=== PATIENT | male | born 1965 | race Caucasian/White ===

== ENCOUNTER 2017-03-08 05:21 | Emergency (ER) | payer MEDICAID, OTHER ==
[2017-03-08] MEDS ORDERED: Morphine 2 MG/ML SYRINGE ONE (06:09)
[2017-03-08] MEDS ORDERED: Acetaminophen 500 MG TAB ONE (06:09)
[2017-03-08 06:25] LABS: #Lymphocytes 0.6 thou/uL (1.20-3.40); #Monocytes 0.6 thou/uL (0.11-0.59); #Neutrophils 5.6 thou/uL (1.40-6.50); %Eosinophils 0.7 % (0.0-10.0); %Lymphocytes 9.3 % (21.0-51.0); %Monocytes 8.3 % (0.0-10.0); Hematocrit 40.3 % (42.0-52.0); Mean Platelet Volume 7.7 fL (7.4-10.4); Red Blood Cell (RBC) Count 4.07 mill/uL (4.70-6.10); White Blood Cell (WBC) Count 6.9 thou/uL (4.8-10.8)
[2017-03-08 06:41] LABS: Lactic Acid - Sepsis 1.6 mmol/L (0.5-2.2)
[2017-03-08 06:43] LABS: Bilirubin Small (Negative); Blood, Urine Negative (Negative); Glucose, Urine (Dipstick) >=1000 mg/dL (Negative); Ketone, Urine Negative (Negative); Nitrite Negative (Negative); Protein, Urine (Dipstick) Trace mg/dL (Neg-Trace)
[2017-03-08 06:46] LABS: ALT (SGPT) 52 U/L (8-55); AST (SGOT) 41 U/L (5-34); Alkaline Phosphatase 130 U/L (40-150); Anion Gap 7 mmol/L (10-20); BUN (Urea Nitrogen) 6 mg/dL (8.9-20.6); Bilirubin, Total 1.7 mg/dL (0.2-1.2); Calc. Creatinine Clearance 0 mL/min (70-130); Calcium 7.8 mg/dL (7.8-10.44); Carbon Dioxide 25 mmol/L (22-29); Chloride 102 mmol/L (98-107); Estimated GFR-MDRD Greater than 90; Protein, Total 6.6 g/dL (6.0-8.3)
--- NOTE | 2017-03-08 08:17 | ULT ---
ULTRASOUND VENOUS DOPPLER LEFT LOWER EXTREMITY: HISTORY: Calf tenderness, redness, swelling, pain. COMPARISON: None. TECHNIQUE: Rela-time, rodriguez scale, color Doppler, and spectral analysis of the left lower extremity system was p erformed with a linear ray transducer. FINDINGS: The common femoral, femoral, and proximal portions of the grater saphenous and deep veins as well as the popliteal and posterior tibial vein are interrogated. Normal flow, augmentation, and compressi on. IMPRESSION: No deep venous thrombosis. POS: [facility]
[2017-03-08] MEDS ORDERED: Potassium Chloride 20 MEQ TAB ONE (08:18)
== END 2017-03-08 08:26 | disposition short-term general hospital (02) ==
LOC: ERS 05:21
DX: A41.9 Sepsis, unspecified organism (principal); L03.032 Cellulitis of left toe; I10 Essential (primary) hypertension; K21.9 Gastro-esophageal reflux disease without esophagitis; F32.9 Major depressive disorder, single episode, unspecified; F17.210 Nicotine dependence, cigarettes, uncomplicated
CPT/HCPCS: 36415; 80053; 81003; 83605; 85652; 86140; 93005; 96361; 96374; J2270

== ENCOUNTER 2017-07-11 23:06 | Emergency (ER) | payer OTHER ==
[2017-07-12 00:04] LABS: CKMB 2.2 ng/mL (0-6.6); Troponin I Less than 0.010 ng/mL (< 0.028)
[2017-07-12 00:12] LABS: ALT (SGPT) 78 U/L (8-55); AST (SGOT) 111 U/L (5-34); Albumin 2.6 g/dL (3.5-5.0); Alkaline Phosphatase 190 U/L (40-150); Anion Gap 8 mmol/L (10-20); BUN (Urea Nitrogen) 10 mg/dL (8.9-20.6); Bilirubin, Total 1.3 mg/dL (0.2-1.2); Calc. Creatinine Clearance 0 mL/min (70-130); Calcium 8.2 mg/dL (7.8-10.44); Carbon Dioxide 24 mmol/L (22-29); Chloride 108 mmol/L (98-107); Estimated GFR-MDRD Greater than 90; Glucose 185 mg/dL (70-105); Lipase 20 U/L (8-78); Magnesium 1.6 mg/dL (1.6-2.6); Potassium 3.5 mmol/L (3.5-5.1); Protein, Total 6.6 g/dL (6.0-8.3); Sodium 136 mmol/L (136-145)
[2017-07-12 00:14] LABS: HBCM Index 0.11 S/CO (0-0.79); Hep A IgM AB Non-Reactive (NonReactive); Hep A IgM S/CO 0.11 S/CO (0-0.79); Hep B Surf Ag Non-Reactive S/CO (NonReactive); Hepatitis B Core IGM Abs Non-Reactive (NonReactive)
[2017-07-12 00:18] LABS: #Eosinphils 0.2 thou/uL (0.0-0.7); #Lymphocytes 0.8 thou/uL (1.20-3.40); #Monocytes 0.2 thou/uL (0.11-0.59); #Neutrophils 1.5 thou/uL (1.40-6.50); %Eosinophils 6.3 % (0.0-10.0); %Lymphocytes 27.9 % (21.0-51.0); %Monocytes 8.1 % (0.0-10.0); %Neutrophils 56.8 % (42.0-75.0); Hemoglobin 12.3 g/dL (14.0-18.0); Mean Corpuscular HGB CONC 33.6 g/dL (32.0-36.0); Mean Corpuscular Hemoglobin 32.1 pg (27.0-31.0); Mean Corpuscular Volume 95.6 fl (80.0-94.0); Mean Platelet Volume 8.6 fL (7.4-10.4); Platelet Count 65 thou/uL (130-400); RBC Distribution Width 16.6 % (11.5-14.5); Red Blood Cell (RBC) Count 3.82 mill/uL (4.70-6.10); White Blood Cell (WBC) Count 2.7 thou/uL (4.8-10.8)
[2017-07-12 00:21] LABS: INR-International Normal Ratio 1.3; Prothrombin Time 16.8 SEC (12.0-14.7)
[2017-07-12 00:22] LABS: PTT 32.9 SEC (22.9-36.1)
[2017-07-12 01:12] LABS: Hep C IgG Ab Reflex HepC Qnt (NonReactive); Hep C Index 8.78 S/CO (0-0.79)
--- NOTE | 2017-07-12 02:44 | PDOC.FPRHP ---
- History of Present Illness Chief Complaint: Abdominal pain History of Present Illness: 51 year old male with history of chronic hepatitis C, HTN, and GERD presents with a 4 month history of increasing abdominal girth and abdominal pain. The pain was a "pressure-like" pain that was initially intermittent, but has become persistent over the last few days. Patient has attempted to take tylenol and ibuprofen for pain, but has not had any relief in symptoms. He currently is homeless and jumps from penitentiary to penitentiary. His mother does live in town, so he has been staying with her over the past few days, and she was the one that called EMS at his request. Associated symptoms included shortness of breath and chest pain. A paracentesis was performed down in the ED, and 5 liters of ascitic fluid was removed. Patient states that his abdominal pain, shortness of breath, and chest pain all resolved after the procedure. Over the past few months, patient has been urinating less frequently. He denies any recent fevers , chills, dysuria, cough, congestion, sore throat, or headaches. He has chronic lower extremity swelling that is at baseline. ED Course: Patient was given morphine 6 mg in the ED. Additionally, a paracentesis was performed, and 5L of ascitic fluid was removed. An order was placed for 50 g of albumin to be given. - Allergies/Adverse Reactions Allergies Allergy/AdvReac Type Severity Reaction Status Date / Time No Known Drug Allergies Allergy Verified 04/05/16 00:02 - Home Medications Medication Instructions Recorded Confirmed Type Amitriptyline HCl [Elavil] 150 mg PO HS 04/05/16 04/05/16 History Citalopram [CeleXA] 10 mg PO DAILY 04/05/16 04/05/16 History Linezolid [Zyvox] 600 mg PO BID #20 tab 04/10/16 Rx Lisinopril 5 mg PO DAILY 04/14/16 04/14/16 History Comments: Patient has not taken medications consistently in several years. He takes "left over amitryptiline" from his mom. Otherwise, he takes over the counter antacids , ibuprofen, and tylenol. - History PMHx: Chronic Hepatitis C, HTN, GERD, Pancytopenia, Hypoalbuminemia, Schizoaffective disorder PSHx: Left 1st toe surgery (unspecified) FHx: Noncontributory Social: Patient is currently homeless and jumping from penitentiary to penitentiary. He states that he has a home address in [place] where he shares a trailor with several individuals. He claims that he often needs to get away from them, so he opts to live on the streets. His mother does live here and town, and he has been staying with her for the past few days. Patient endorses a 1 PPD tobacco use history since 2006. He denies drug or alcohol use. - Review of Systems General: reports: weight/appetite/sleep changes (Increased weight). denies: fever/chills, night sweats ENT: denies: nasal congestion, rhinorrhea Respiratory: reports: shortness of breath. denies: cough, congestion Cardiovascular: reports: chest pain. denies: palpitation, edema, paroxysmal nocturnal dyspnea Gastrointestinal: reports: abdominal pain. denies: nausea, vomiting, diarrhea, constipation Genitourinary: reports: other (Decreased urination). denies: polyuria Skin: denies: rashes, lesions, itching Musculoskeletal: reports: pain (neck pain) Neurological: denies: syncope, seizure, weakness Psychological: reports: other (Schizoaffective disorder). denies: depression - Vital signs BP: [] HR: [] RR: [] Tmax: [] Pox: []% on [] Wt: [] - Physical Exam Constitutional: NAD, awake, alert and oriented, well developed HEENT: normocephalic and atraumatic, PERRLA, EOMI Neck: supple Heart: RRR -Heart: systolic murmur 2/6 Lungs: CTAB, no respiratory distress, no wheezing Abdomen: soft, non-tender, bowel sounds present, other (umbilical hernia, reducible) -Abdomen: mildly distended Musculoskeletal: normal structure, normal tone Neurological: no focal deficit Skin: capillary refill <2 seconds -Skin: Multiple nailbeds with hematomas. Multiple tattoos Heme/Lymphatic: no purpura, no petechia Psychiatric: other (Paranoid) FMR H&P: Results - Labs Result Diagrams: 07/11/17 23:25 07/11/17 23:25 Lab results: WBC 2.7 thou/uL (4.8-10.8) L 07/11/17 23:25 Hgb 12.3 g/dL (14.0-18.0) L 07/11/17 23:25 Hct 36.5 % (42.0-52.0) L 07/11/17 23:25 MCV 95.6 fl (80.0-94.0) H 07/11/17 23:25 Plt Count 65 thou/uL (130-400) L 07/11/17 23:25 Neutrophils % 56.8 % (42.0-75.0) 07/11/17 23:25 Sodium 136 mmol/L (136-145) 07/11/17 23:25 Potassium 3.5 mmol/L (3.5-5.1) 07/11/17 23:25 Chloride 108 mmol/L (98-107) H 07/11/17 23:25 Carbon Dioxide 24 mmol/L (22-29) 07/11/17 23:25 BUN 10 mg/dL (8.9-20.6) 07/11/17 23:25 Creatinine 0.83 mg/dL (0.6-1.3) 07/11/17 23:25 Glucose 185 mg/dL (70-105) H 07/11/17 23:25 Calcium 8.2 mg/dL (7.8-10.44) 07/11/17 23:25 Total Bilirubin 1.3 mg/dL (0.2-1.2) H 07/11/17 23:25 AST 111 U/L (5-34) H 07/11/17 23:25 ALT 78 U/L (8-55) H 07/11/17 23:25 Alkaline Phosphatase 190 U/L (40-150) H 07/11/17 23:25 CK-MB (CK-2) 2.2 ng/mL (0-6.6) 07/11/17 23:25 B-Natriuretic Peptide 51.9 pg/mL (0-100) 07/11/17 23:25 Serum Total Protein 6.6 g/dL (6.0-8.3) 07/11/17 23:25 Albumin 2.6 g/dL (3.5-5.0) L 07/11/17 23:25 Lipase 20 U/L (8-78) 07/11/17 23:25 - Radiology Interpretation CT scan - chest Status: pending CT scan - abdomen Status: pending Other Status: pending Additional comment: RUQ FMR H&P: A/P - Problem List (1) Ascites Status: Acute Code(s): R18.8 - OTHER ASCITES (2) Chronic hepatitis C with cirrhosis Status: Chronic Code(s): B18.2 - CHRONIC VIRAL HEPATITIS C; K74.60 - UNSPECIFIED CIRRHOSIS OF LIVER (3) Schizoaffective disorder Status: Chronic Code(s): F25.9 - SCHIZOAFFECTIVE DISORDER, UNSPECIFIED (4) GERD (gastroesophageal reflux disease) Status: Chronic Code(s): K21.9 - GASTRO-ESOPHAGEAL REFLUX DISEASE WITHOUT ESOPHAGITIS (5) HTN (hypertension) Status: Chronic Code(s): I10 - ESSENTIAL (PRIMARY) HYPERTENSION (6) Hyperglycemia Status: Chronic Code(s): R73.9 - HYPERGLYCEMIA, UNSPECIFIED (7) Pancytopenia Status: Chronic Code(s): D61.818 - OTHER PANCYTOPENIA - Plan Disposition/LOS: Admit to telemetry for observation. Anticipate 1-2 day hospitalization. FMR H&P: Upper Level - Pertinent history After admission, pt was transferred to the [facility] for insurance reasons - Plan Date/Time: 07/12/17 0242 IGiovanna, have evaluated this patient and agree with findings/plan as outlined by general internal medicine physician resident. Pertinent changes/additions are listed here. Attending Addendum - Attending Addendum Date/Time: 07/12/17 1014 This patient was transferred to the [facility] before being admitted.
[2017-07-12 02:59] LABS: Fluid, Glucose 171 mg/dL (Not Available); Fluid, Protein Less than 1.0 g/dL (Not Available)
[2017-07-12] MEDS ORDERED: Albumin 25% 25 GM/100 ML BOT IVPB SCH (03:00)
[2017-07-12 03:20] LABS: BF Color Yellow; Body Fluid Source PERITONEAL FLUID; Clarity Clear (Clear); Tube # EDTA
[2017-07-12 03:21] LABS: BF RBC Count - Manual 674 /cumm; BF WBC/Nonhematics Ct. - Manua 74 /cumm
[2017-07-12 03:30] LABS: BF Segmented Neutrophils 9 %; Cell Count Non Hematic 77 %; Eosinophils 1 %; Lymphocytes 13 %
[2017-07-12 03:45] LABS: Troponin I Less than 0.010 ng/mL (< 0.028)
[2017-07-12 05:01] LABS: Bilirubin Negative (Negative); Blood, Urine Negative (Negative); Clarity CLEAR (Clear); Glucose, Urine (Dipstick) Negative (Negative); Leukocyte Negative (Negative); Nitrite Negative (Negative); Protein, Urine (Dipstick) Negative (Neg-Trace); Specific Gravity, Urine 1.028 (1.002-1.036); Urobilinogen 0.2 mg/dL (0.2-1.0)
[2017-07-12] MEDS ORDERED: ISOVUE-370 76%-LOCM 1 ML ONE (07:12)
--- NOTE | 2017-07-12 08:07 | CT ---
PRELIMINARY REPORT/[facility]/EMERGENCY AFTER HOURS PROCEDURE: EXAM: CT Angiography Chest With Intravenous Contrast CLINICAL HISTORY: 51 years old, male; Pain; Abdominal pain; Chest pain; Patient HX: Er 20; Chest pain; M51 presents w/ abd pain and distention since 07/07. Pt denies any n/v/d, bowel changes, urinary changes. Pt reports h is abd started swelling before the abd pain started. Pt reports HX of hep c. Pt denies fever or chill s. TECHNIQUE: Axial computed tomographic angiography images of the chest with intravenous contrast using pulmonary embolism protocol. MIP reconstructed images were created and reviewed. Coronal reformatted images were created and reviewed. COMPARISON: No relevant prior studies available. FINDINGS: Pulmonary arteries: Unremarkable. No pulmonary embolism. Aorta: No acute findings. No thoracic aortic aneurysm. Lungs: Lungs are clear allowing for expiratory phase imaging with multifocal subsegmental atelectasis . No mass. Pleural space: Unremarkable. No significant effusion. No pneumothorax. Heart: Cardiomegaly. No significant pericardial effusion. No evidence of RV dysfunction. Mediastinum: The esophagus is unremarkable. Bones/joints: No acute fracture. No dislocation. Soft tissues: Unremarkable. Lymph nodes: Unremarkable. No enlarged lymph nodes. IMPRESSION: No acute findings. Thank you for allowing us to participate in the care of your patient. Dictated and Authenticated by: David Hess MD 07/12/2017 1:59 AM Central Time ([place] & [place]) FINAL REPORT CT PULMONARY ANGIOGRAM WITH IV CONTRAST AND 3D POSTPROCESSING: Date: 07/12/17 FINDINGS/IMPRESSION: I agree with the preliminary report given by Dr. David Hess of [facility]. POS: [facility]
--- NOTE | 2017-07-12 08:09 | CT ---
PRELIMINARY REPORT/[facility]/EMERGENCY AFTER HOURS PROCEDURE: EXAM: CT Abdomen and Pelvis With Intravenous Contrast EXAM DATE/TIME: Exam ordered 07/12/2017 1:13 AM CLINICAL HISTORY: 51 years old, male; Pain; Abdominal pain; Chest pain; Patient HX: Er 20; Chest pain; M51 presents w/ abd pain and distention since 07/07. Pt denies any n/v/d, bowel changes, urinary changes. Pt reports h is abd started swelling before the abd pain started. Pt reports HX of hep c. Pt denies fever or chill s. TECHNIQUE: Axial computed tomography images of the abdomen and pelvis with intravenous contrast. MIP reconstructed images were created and reviewed. Coronal reformatted images were created and reviewed. COMPARISON: No relevant prior studies available. FINDINGS: Lower thorax: No acute findings. ABDOMEN: Liver: Hepatic cirrhosis. Gallbladder and bile ducts: Cholelithiasis. No cholecystitis or biliary ductal dilatation. Pancreas: Unremarkable. No mass. No ductal dilation. Spleen: Splenomegaly. Adrenals: Unremarkable. No mass. Kidneys and ureters: Unremarkable. No solid mass. No hydronephrosis. Stomach and bowel: No bowel wall thickening or intestinal obstruction. Appendix: Appendix not visualized. No evidence of appendicitis. PELVIS: Bladder: Unremarkable. No mass. Reproductive: Unremarkable as visualized. ABDOMEN and PELVIS: Intraperitoneal space: Large volume ascites. No free air. Bones/joints: No acute fracture. No dislocation. Soft tissues: Umbilical hernia containing ascites fluid. Vasculature: Unremarkable. No abdominal aortic aneurysm. Lymph nodes: Unremarkable. No enlarged lymph nodes. IMPRESSION: 1. Hepatic cirrhosis with splenomegaly. 2. Large volume ascites. Thank you for allowing us to participate in the care of your patient. Dictated and Authenticated by: David Hess MD 07/12/2017 1:59 AM Central Time ([place] & Vin) FINAL REPORT CT ABDOMEN AND PELVIS WITH IV CONTRAST: Date: 07/12/17 FINDINGS/IMPRESSION: I agree with the preliminary report given by Dr. David Hess of [facility]. POS: [facility]
[2017-07-15 11:21] LABS: HCV log10 6.489 (.); Hep C PCR-Quant 3080000 IU/mL (.)
== END 2017-07-12 05:58 | disposition short-term general hospital (02) ==
LOC: ERS 23:06
DX: R18.8 Other ascites (principal); K72.90 Hepatic failure, unspecified without coma; F32.9 Major depressive disorder, single episode, unspecified; F39 Unspecified mood [affective] disorder; F17.210 Nicotine dependence, cigarettes, uncomplicated; K21.9 Gastro-esophageal reflux disease without esophagitis; I10 Essential (primary) hypertension; Z79.899 Other long term (current) drug therapy
CPT/HCPCS: 36415; 71275; 74177; 80053; 80074; 81003; 82105; 82140; 82248; 82378; 82553; 82945; 83690; 83735; 83880; 84157; 84484; 85025; 85060; 85379; 85610; 85730; 87070; 87205; 87522; 89051; 93005; 96365; 96366; 96375; 96376; J2270; P9047

== ENCOUNTER 2018-03-24 21:49 | Inpatient (IN) | payer SELFPAY ==
[2018-03-24 22:46] LABS: Anion Gap 13 mmol/L (10-20); BUN (Urea Nitrogen) 18 mg/dL (8.9-20.6); Calc. Creatinine Clearance 0 mL/min (70-130); Calcium 8.6 mg/dL (7.8-10.44); Carbon Dioxide 19 mmol/L (22-29); Chloride 107 mmol/L (98-107); Estimated GFR-MDRD 88; Glucose 253 mg/dL (70-105); Potassium 3.8 mmol/L (3.5-5.1); Sodium 135 mmol/L (136-145)
[2018-03-24 22:54] LABS: Actual Bicarbonate (HCO3a) 20.1 mEq/L (22-28); Analyzer IN Cardio ER; Base Excess (BEa) -3.2 mEq/L (-2.0 to +3.0); CO2 Tension 31.7 mmHg (35.0-45.0); Calcium, Ionized 1.14 mmol/L (1.12-1.30); Carboxyhemoglobin (COHb) 1.4 gm% (0.0-3.0); Hemoglobin (Hb) 14.8 g/dL (14.0-18.0); O2 Tension (PaO2) 81.8 mmHg (80.0-100.0); Potassium - ABG Lab 3.78 mmol/L (3.70-5.30); pH, Arterial 7.42 (7.35-7.45)
[2018-03-24 22:57] LABS: ALV-art Gradient 28.305 (0-20); Puncture Site RRA
[2018-03-24 23:12] LABS: Lactic Acid 1.9 mmol/L (0.5-2.2)
[2018-03-24] MEDS ORDERED: Insulin Glargine 10 UNITS in Pre-Filled Syringe 1 EACH SC SCH (23:45)
[2018-03-25] MEDS ORDERED: Acetaminophen 325 MG TAB PO PRN (00:10)
[2018-03-25] MEDS ORDERED: Dextrose 50% Abboject 50 ML SYRINGE SLOW IVP PRN (00:10)
[2018-03-25] MEDS ORDERED: Ondansetron ODT 4 MG TAB PO PRN (00:10)
[2018-03-25] MEDS ORDERED: Dextrose 5% in Water 1,000 ML IV PRN (00:10)
[2018-03-25] MEDS ORDERED: Ondansetron PF 4 MG/2 ML Vial IVP PRN (00:10)
[2018-03-25] MEDS ORDERED: HumaLOG 300 UNITS/3 ML VIAL SC PRN (00:10)
[2018-03-25] MEDS: Sodium Chloride 0.9% 1,000 ML IV SCH ×2 (01:47→14:00)
[2018-03-25 02:04] VITALS: BMI 34.4
[2018-03-25 05:56] LABS: #Eosinphils 0.1 thou/uL (0.0-0.7); #Lymphocytes 1.5 thou/uL (1.20-3.40); #Monocytes 0.6 thou/uL (0.11-0.59); %Basophils 0.7 % (0.0-1.0); %Eosinophils 2.1 % (0.0-10.0); %Lymphocytes 36.1 % (21.0-51.0); %Monocytes 14.8 % (0.0-10.0); %Neutrophils 46.3 % (42.0-75.0); Hemoglobin 14.4 g/dL (14.0-18.0); Mean Corpuscular HGB CONC 32.7 g/dL (32.0-36.0); Mean Corpuscular Hemoglobin 31.3 pg (27.0-31.0); Mean Corpuscular Volume 95.6 fL (78.0-98.0); Mean Platelet Volume 7.6 fL (7.4-10.4); Platelet Count 80 thou/uL (130-400); Red Blood Cell (RBC) Count 4.61 mill/uL (4.70-6.10); White Blood Cell (WBC) Count 4.2 thou/uL (4.8-10.8)
[2018-03-25 06:12] LABS: Anion Gap 14 mmol/L (10-20); BUN (Urea Nitrogen) 18 mg/dL (8.9-20.6); Calc. Creatinine Clearance 121 mL/min (70-130); Calcium 8.7 mg/dL (7.8-10.44); Carbon Dioxide 18 mmol/L (22-29); Chloride 106 mmol/L (98-107); Estimated GFR-MDRD 72; Glucose 348 mg/dL (70-105); Potassium 3.9 mmol/L (3.5-5.1); Sodium 134 mmol/L (136-145)
[2018-03-25] MEDS: HumaLOG 300 UNITS/3 ML VIAL SC PRN ×3 (06:34→17:42)
--- NOTE | 2018-03-25 08:21 | HP ---
CHIEF COMPLAINT: High blood sugar. HISTORY OF PRESENT ILLNESS: This is a 52-year-old male with past medical history significant for hep atitis C, hypertension, GERD, diabetes mellitus type 2, presenting with elevated blood sugars. The p reinier states that he was not feeling well and that he was feeling a little fuzzy and shaky, so he we nt to the Urgent [facility] and the patient was transferred from [facility] to our ED because the patient's blood sugars were elevated, so they wanted the patient be evaluated for diabetic ketoacidosis. At this time, patient is lying in bed, does not appear to be in any acute dis tress and the patient states that he also went to [facility] for his psych scripts and per the patient, he states that he is very compliant with his medications, he said that when he came out of sn[facility] he did n ot get any medications from [facility], therefore, the patient did not have any medications filled, so the patient states that he had to go to "some lady" to get her medications filled. At this time, the pat dolores states that he is trying his best to stay out of trouble and that he is trying to take good care of himself as much as possible. The patient denies any fever, nausea, vomiting, chest pain, palpita tions, shortness of breath at this time. Of note, the patient was seen on 06/2017 for ascites in our hospital and the patient had paracentesis during the visit. REVIEW OF SYSTEMS: All other systems were reviewed and are negative. PAST MEDICAL HISTORY: Significant for GERD, hepatitis C, hypertension, diabetes mellitus type 2. PAST SURGICAL HISTORY: Tonsillectomy, adenoidectomy, left great toe surgery. PSYCHIATRIC HISTORY: The patient has depression, schizoaffective disorder. SOCIAL HISTORY: The patient smokes cigarettes. Per patient, he does not smoke a lot of cigarette, b ut states that every now and then he craves for cigarette since he used to smoke cigarettes in the [place]. The patient also is a former methamphetamine abuser. Per records, the patient actually smokes 1 pack per day. The patient just came out of [facility] and the patient is homeless. FAMILY HISTORY: Reviewed and is noncontributory to this visit. ALLERGIES: No known drug allergies. CURRENT MEDICATIONS: Olanzapine 15 mg, amitriptyline 75 mg, Zantac. PHYSICAL EXAMINATION: VITAL SIGNS: Blood pressure is 166/104, pulse of 108, respiratory rate of 18, temperature of 98.1, O 2 saturation of 97. GENERAL APPEARANCE: The patient is lying in bed. The patient is very talkative, appeared to be aler t and oriented x3, does not appear to be in any distress. HEENT: Normocephalic, atraumatic. Pupils are equally round and reactive to light. Extraocular move ments are intact. No scleral icterus. No conjunctival pallor. Mucous membranes are moist. The pat ient had dental caries and patient has some loose teeth. NECK: Supple, nontender. Trachea is midline. Full range of motion. LUNGS: Clear to auscultation bilaterally. No wheezing, no rales, no rhonchi is appreciated. CARDIOVASCULAR: Positive S1, S2, regular rate and rhythm. No murmurs, no gallops or rubs appreciate d. ABDOMEN: Soft, nontender, nondistended. Positive bowel sounds in all quadrants. No masses, no blossom toneal signs. EXTREMITIES: The patient has 5/5 upper extremity strength, 5/5 lower extremity strength. Good pulse s at the upper and lower extremities. No edema. NEUROLOGIC: Cranial nerves II-XII grossly intact. No neurologic deficit noted. SKIN: The patient does have tattoos all over his body. Patient has tattoos around his abdomen, his upper extremities. Per patient, he actually got hepatitis C from using tattoo needles. PSYCHIATRIC: The patient has good affect; however, has that organization and his concentration is ve ry poor. The patient is alert, oriented x3. EMERGENCY DEPARTMENT COURSE: The patient received Lantus 10 units and lactulose 40. LABORATORY: WBC 4.2, hemoglobin 14.4, hematocrit 44.1, RDW 13, platelet count is 880. ABGs; pH 7.4, pCO2 is 31.7, pO2 is 81.8. Electrolytes: Sodium is 135, potassium is 3.8, chloride is 107, carbon dioxide of 19, anion gap of 13, BUN is 18, creatinine 0.91, GFR of 88. Glucose is 253. Lactic acid is 1.9. Ammonia level is 100. ASSESSMENT AND PLAN: 1. This is a 52-year-old male being admitted for hyperglycemia. At this point, the patient has been started on insulin sliding scale aggressively and we are going to continue patient on insulin. The patient will benefit from case management help as patient does not have a place to live. The patient does not have insurance to fill his medications. We will continue to monitor the patient closely. We will follow up on morning labs. We will replete electrolytes. 2. Hepatic encephalopathy, most likely due to metabolic derangements. The patient's ammonia level i s currently elevated at 100. We will start the patient on lactulose. We will follow up on patient's mental status. At this point, the patient is starting to become alert and oriented x3. 3. Hepatic cirrhosis. The patient has a history of hepatitis C and the patient has cirrhosis. At t his point, we will continue current management. 4. 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 We will monitor the patient's platelets and we will mon itor the patient closely. 5. Hyperammonemia. We have given the patient lactulose. We will continue to monitor the patient. 6. Schizoaffective disorder. We will continue the patient on his psych medications. 7. Deep venous thrombosis and gastrointestinal prophylaxis.
[2018-03-25] MEDS ORDERED: Citalopram 10 MG TAB PO SCH (09:00)
[2018-03-25] MEDS ORDERED: Lisinopril 5 MG TAB PO SCH (09:00)
[2018-03-25] MEDS ORDERED: Enoxaparin Sodium 40 MG/0.4 ML SYRINGE SC SCH (09:00)
[2018-03-25] MEDS: Famotidine/PF 20 mg/2ml Vial SLOW IVP SCH ×2 (09:12→20:06)
[2018-03-25] MEDS ORDERED: metFORMIN 500 MG TAB PO SCH (17:00)
[2018-03-25] MEDS ORDERED: Amitriptyline HCl 100 MG TAB PO SCH (21:00)
[2018-03-25 21:08] VITALS: BP 130/64; TEMP 98.4
[2018-03-26] MEDS ORDERED: Famotidine 20 MG TAB PO SCH (09:00)
--- NOTE | 2018-03-26 10:28 | DIS ---
DATE OF ADMISSION: 03/25/2018 DATE OF DISCHARGE: 03/26/2018 FINAL DIAGNOSES: 1. Uncontrolled hyperglycemia. 2. Hepatic encephalopathy, most likely due to metabolic derangements. 3. Hepatic cirrhosis. 4. 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 5. Hyperammonemia. 6. Schizoaffective disorder. HOSPITAL COURSE: The patient was a 52-year-old male with past medical history positive for hepatitis C, hypertension, GERD, diabetes mellitus type 2, who presented with elevated blood sugars. He felt a little fuzzy and shaky, so he went to the Urgent Care and then he was transferred from [facility] urgent care to emergency department at [facility]. He was evaluated for diabetic ketoacidosis. He got evaluated in the emergency room. At this time, his white count was 4.2, hemog lobin 14.4, hematocrit 44.1, platelet count was 880,000. ABGs showed pH of 7.4, pCO2 31.7, pO2 81.8, sodium 135, potassium 3.8, chloride 107, CO2 19, anion gap was 13, BUN 18, creatinine 0.91, glucose was 253. Lactic acid 1.9 and ammonia level was 100. The patient was continued on insulin. He was s tarted on lactulose. His mentation was significantly improved at the time of admission to [facility]. He was given some education about diabetes and the diet he is supposed to stay on. Apparently yesterday, he became quite agitated and aggressive with the staff and he decided to leave the [facility] against medical advice.
== END 2018-03-26 02:26 | disposition left against medical advice (07) | DRG 638 ==
LOC: ERS 21:49 → 2NO 03-25 00:45
PROVIDERS: ADMIT Internal Medicine; ATTEND Internal Medicine
DX: E11.65 Type 2 diabetes mellitus with hyperglycemia (principal); E72.20 Disorder of urea cycle metabolism, unspecified; K72.90 Hepatic failure, unspecified without coma; B19.20 Unspecified viral hepatitis C without hepatic coma; K74.60 Unspecified cirrhosis of liver; D69.59 Other secondary thrombocytopenia; F20.9 Schizophrenia, unspecified; F17.210 Nicotine dependence, cigarettes, uncomplicated
CPT/HCPCS: 36415; 36416; 80048; 82010; 82140; 82805; 83605; 83930; 85025; 99285; J1650; S0028

== ENCOUNTER 2018-03-26 12:04 | Inpatient (IN) | payer OTHER, SELFPAY ==
[2018-03-26] MEDS ORDERED: Ketorolac Tromethamine 30 MG/ML VIAL ONE (13:39)
--- NOTE | 2018-03-26 14:09 | RAD ---
LEFT FOOT 3 VIWES: HISTORY: A 52-year-old male with a history of blister to bottom of left foot. FINDINGS: There is extensive progressive bone erosion and destructive changes of the 1st metatarsophalangeal santi int with worsening soft tissue swelling of the great toe when compared to the prior 02/06/2018 study, evidence for progressive presumed septic arthritis. Given the bony destruction, there is evidence fo r associated osteomyelitis of the distal 1st metatarsal and the base of the proximal phalanx of the g reat toe. There is some generalized anterior soft tissue swelling. IMPRESSION: Worsening erosive and bony destructive changes of the 1st metatarsal phalangeal joint with progressiv e bony destruction and soft tissue swelling, evidence for worsening septic arthritis and osteomyeliti s. POS: [facility]
[2018-03-26 14:19] LABS: Platelet Count 51 thou/uL (130-400)
[2018-03-26 14:20] LABS: #Eosinphils 0.1 thou/uL (0.0-0.7); #Lymphocytes 0.6 thou/uL (1.20-3.40); #Monocytes 0.2 thou/uL (0.11-0.59); %Basophils 0.5 % (0.0-1.0); %Eosinophils 5.3 % (0.0-10.0); %Lymphocytes 29.6 % (21.0-51.0); %Monocytes 11.8 % (0.0-10.0); %Neutrophils 52.9 % (42.0-75.0); Hemoglobin 12.4 g/dL (14.0-18.0); Mean Corpuscular HGB CONC 34.4 g/dL (32.0-36.0); Mean Corpuscular Hemoglobin 32.7 pg (27.0-31.0); Mean Corpuscular Volume 95.1 fL (78.0-98.0); Mean Platelet Volume 7.8 fL (7.4-10.4); RBC Distribution Width 12.9 % (11.5-14.5)
[2018-03-26 14:41] LABS: ALT (SGPT) 79 U/L (8-55); AST (SGOT) 100 U/L (5-34); Albumin 3.1 g/dL (3.5-5.0); Alkaline Phosphatase 164 U/L (40-150); Anion Gap 7 mmol/L (10-20); BUN (Urea Nitrogen) 17 mg/dL (8.9-20.6); Bilirubin, Total 1.8 mg/dL (0.2-1.2); Calc. Creatinine Clearance 0 mL/min (70-130); Calcium 8.4 mg/dL (7.8-10.44); Carbon Dioxide 24 mmol/L (22-29); Chloride 109 mmol/L (98-107); Estimated GFR-MDRD 68; Globulin 3.6 g/dL (2.4-3.5); Glucose 248 mg/dL (70-105); Protein, Total 6.7 g/dL (6.0-8.3); Sodium 136 mmol/L (136-145)
[2018-03-26 14:50] LABS: Hemoglobin A1c 11.1 % (4.0-6.0)
[2018-03-26] MEDS ORDERED: Piperacillin/Tazobactam 4.5 GM VIAL ONE (15:21)
[2018-03-26] MEDS ORDERED: OLANZapine 5 MG TAB ONE (16:49)
[2018-03-26] MEDS ORDERED: Nicotine 14 MG PATCH TOP SCH (18:00)
[2018-03-26] MEDS ORDERED: Acetaminophen 325 MG TAB PO PRN (19:54)
[2018-03-26] MEDS ORDERED: Ondansetron ODT 4 MG TAB SL PRN (19:54)
[2018-03-26] MEDS ORDERED: HYDROcodone/Acetaminophen 5/325 mg Tablet PO PRN ×2 (19:54)
[2018-03-26] MEDS ORDERED: Ondansetron PF 4 MG/2 ML Vial IVP PRN (19:54)
[2018-03-26] MEDS ORDERED: Sodium Chloride 0.9% 1,000 ML IV SCH (19:54)
[2018-03-26] MEDS ORDERED: Clindamycin/D5W 900 MG in Premix Bag 1 BAG IVPB SCH (20:00)
[2018-03-26] MEDS ORDERED: Dextrose 5% in Water 1,000 ML IV PRN (20:27)
[2018-03-26] MEDS ORDERED: Dextrose 50% Abboject 50 ML SYRINGE SLOW IVP PRN ×2 (20:27)
[2018-03-26] MEDS ORDERED: HYDROcodone/Acetaminophen 7.5/325 mg Tablet PO PRN (20:27)
[2018-03-26] MEDS: Piperacillin/Tazobactam 3.375 GM in Sodium Chloride 0.9% 100 ML IVPB SCH (22:53)
--- NOTE | 2018-03-27 00:02 | HP ---
DATE OF ADMISSION: 03/26/2018 CHIEF COMPLAINT: Pain of the left foot. HISTORY OF PRESENT ILLNESS: The patient is a 52-year-old male, who was just discharged fro m our hospital against medical advice last night. He was hospitalized for uncontrolled high blood ogden gar and he got upset and started being aggressive with the staff and left against medical advice. He came back to our emergency room today asking for some pain medicine for his left foot. X-ray of the left foot showed most likely osteomyelitis of the left great toe and the patient is getting admitted to the hospital for further management of his problem. His H&P was dictated yesterday by Dr. William Pineda briefly. PAST MEDICAL HISTORY: Positive for hepatitis C; hypertension; diabetes mellitus, type 2; and GERD. PAST SURGICAL HISTORY: Tonsillectomy, adenoidectomy, left great toe surgery. PSYCHIATRIC HISTORY: Depression and schizoaffective disorder. SOCIAL HISTORY: He smokes cigarettes on and off, more or less than 1 pack per day. He just came out from [facility] and he is homeless. FAMILY HISTORY: Noncontributory at this point. ALLERGIES: None. CURRENT MEDICATIONS: Unclear what he is taking since he left the hospital yesterday. We know that linda galvan was taking Elavil 150 mg at bedtime, Celexa 10 mg once a day and olanzapine 15 mg once a day. PHYSICAL EXAMINATION: VITAL SIGNS: Blood pressure is 162/80, pulse is 87, respiratory rate is 16, temperature is 98.3, and pulse oximetry 98% on room air. GENERAL: He is somewhat agitated. He is asking for pain medicine for his left foot. He is rating t his pain at 8/10. HEENT: His head is atraumatic, normocephalic. Eyes are PERRLA. Sclerae nonicteric. Oral mucosa is moist. NECK: Supple. LUNGS: Clear. HEART: S1, S2 normal. No S3, no S4, no murmur. ABDOMEN: Soft, nontender. Obese. EXTREMITIES: He has a blister on his left heel, which is opened and he has healed incision on the do rsal part of his left great toe which is somewhat painful on range of motion of the great toe. NEUROLOGICAL: He is alert and oriented x3. There are no any motor or sensory deficits. He moves hi s all 4 extremities. PSYCHIATRIC: He is quite agitated. He has some visual hallucinations on and off. LABORATORY AND X-RAY FINDINGS: Showed a white count of 2.0, hemoglobin 12.4, hematocrit 36.1, platel et count is 51,000. Chemistry: Sodium of 136, potassium 4.0, chloride 109, CO2 of 24, BUN 17, creat inine 1.14, glucose 248. Hemoglobin A1c 11.1. Total bilirubin 1.8, AST 100, ALT 79, alkaline phosph atase 164 and ammonia is 86, albumin is 3.1. X-ray of the left foot showed worsening erosive and bon y destructive changes of the first metatarsophalangeal joint with progressive bony destruction and so ft tissue swelling, evidence for worsening septic arthritis and osteomyelitis. IMPRESSION: 1. Left great toe metatarsophalangeal joint osteomyelitis with possible septic arthritis. Apparentl y, he had operation on this toe. We are not sure this is probably more than several months ago, but the skin is healed properly. 2. Schizoaffective disorder. 3. Liver cirrhosis secondary to hepatitis C. 4. Chronic hepatitis C. 5. Elevated ammonia secondary to liver cirrhosis. 6. Uncontrolled diabetes with hemoglobin A1c at 11.1. 7. Pancytopenia secondary to liver cirrhosis. PLAN: Admission to the medical floor, full admission. Condition is fair. Activity is bed rest and bathroom privileges. IV Hep-Lock. Orthopedic Surgery and Dr. Medina consult. He is started on va ncomycin and Zosyn. We will continue those 2 antibiotics. We will put him on lactulose and I am goi ng to put him on olanzapine 15 mg once a day, Elavil 150 mg at bedtime and Celexa 10 mg once a day al barry with lisinopril 5 mg once a day. We will do Accu-Cheks a.c. and at bedtime, cover with sliding s tucker and we will use 10 units of long-acting insulin. Deep venous thrombosis prophylaxis with sequen tial compression devices and Lovenox.
[2018-03-27] MEDS: Piperacillin/Tazobactam 3.375 GM in Sodium Chloride 0.9% 100 ML IVPB SCH ×4 (03:58→20:48)
[2018-03-27] MEDS ORDERED: Vancomycin HCl 1 GM in Premix Bag 1 BAG IVPB SCH (07:00)
--- NOTE | 2018-03-27 08:14 | PRG ---
DATE OF SERVICE: 03/27/2018 SUBJECTIVE: The patient is seen and examined at the bedside. He is sitting in the chair during my v isit. He is doing better. He has some pain in his foot, but it is diminished. He does not have muc h more complaints to offer. OBJECTIVE: VITAL SIGNS: Blood pressure is 124/77, pulse is 83, temperature is 97.7, respiratory rate is 20, O2 saturation is 96% on room air. HEENT: His head is atraumatic, normocephalic. Eyes are PERRLA. Sclerae nonicteric. Oral mucosa is moist. NECK: Supple, no lymphadenopathy. Thyroid is not palpable. LUNGS: Clear. HEART: S1 and S2 normal, no S3, no S4, no any murmur. ABDOMEN: Soft, nontender, nondistended. EXTREMITIES: No clubbing, cyanosis, or edema. The left great toe looks basically the same. There i s not any erythema or rash. It is tender to range of motion. NEUROLOGICAL EXAMINATION: He is alert and oriented x4. There are not any motor or sensory deficits. Cranial nerves are intact. Psychiatric evaluation reveals significant improvement of his mental co ndition. He does not have hallucinations. He is calmer and he is not aggressive than yesterday. LABORATORY DATA: Glycemia is ranging from 181-293. Microbiology is pending. IMPRESSION: 1. Left great toe metatarsophalangeal joint osteomyelitis with possible septic arthritis. Awaiting orthopedic evaluation. We will continue his vancomycin and Zosyn antibiotics IV. 2. Schizoaffective disorder, started on olanzapine yesterday, improved. 3. Liver cirrhosis, secondary to hepatitis C. 4. Chronic hepatitis C. 5. Uncontrolled diabetes with hemoglobin A1c at 11.1. 6. Pancytopenia, secondary to liver cirrhosis. PLAN: As mentioned above, continue IV antibiotics. Obtain surgical consultation with [facility]. Start him on Lantus 10 units a day. Continue deep venous thrombosis prophylaxis.
[2018-03-27] MEDS: Lisinopril 5 MG TAB PO SCH (08:31)
[2018-03-27] MEDS: Citalopram 10 MG TAB PO SCH (08:31)
[2018-03-27] MEDS ORDERED: Prevnar 13-Val Conj/PF 0.5 ML SYRINGE IM ONE (09:00)
[2018-03-27 09:29] VITALS: BMI 37.6
--- NOTE | 2018-03-27 16:30 | CON ---
DATE OF CONSULTATION: 03/27/2018 HISTORY OF PRESENT ILLNESS: Mr. Delarosa is a 52-year-old white male who underwent surgery on his meta tarsophalangeal joint of his left great toe about 6-8 months ago in [place]. The patient states he do es not know why he had surgery. He has a history of drug abuse including meth abuse. He also has sc hizoaffective disorder and depression. He has a history of diabetes mellitus, hypertension, hepatiti s C. The patient was admitted a couple days ago and then left against medical advice and then showed up again last night for reported pain in his left foot. X-rays of left foot shows destruction of th e first metatarsophalangeal joint, which could be consistent with septic arthritis and osteomyelitis. The patient has not had any open wounds. The incision that he had from surgery 6-8 months ago comp letely healed up well. At the time that I came to do the consult, the patient had left his room and he walked to the elevator, walked down the haskins, and was walking outside without any reported pain to his left foot. PHYSICAL EXAMINATION: GENERAL: Patient is a pleasant male, alert and oriented x3, cooperative with the examination. The p atient has been afebrile during the whole hospital course. EXTREMITIES: Examination of the left foot shows some superficial ulcers in the medial aspect of the left hindfoot. The left great toe is in good alignment. He has a well-healed scar over the dorsum o f the first metatarsophalangeal joint. There is no erythema or swelling at the first MTP joint. I a m able to passively move the great toe without pain. There are no open wounds anywhere around the gr eat toe. I reviewed the x-rays and the patient does have destruction of the first metatarsophalangeal joint wh ich could be consistent with osteomyelitis, but the patient also had surgery, I am not sure exactly w hat the extent of the surgery was. PROCEDURE: After prepping the skin, an 18-gauge needle was inserted into the first MTP joint to see if any fluid could be obtained. No fluid was found in the joint. The needle was then removed. IMPRESSION: At this point, there does not appear to be any acute infection in the first metatarsal p halangeal joint of the left great toe. I would not recommend any specific surgery for the great toe at this time. Specifically, I would not recommend incision and drainage. Since I do not feel there is any infection present.
[2018-03-27] MEDS: HumaLOG 300 UNITS/3 ML VIAL SC PRN (17:37)
[2018-03-27] MEDS: Insulin Glargine 10 UNITS in Pre-Filled Syringe 1 EACH SC SCH (20:48)
[2018-03-27] MEDS: OLANZapine 5 MG TAB PO SCH (20:48)
[2018-03-28] MEDS: Piperacillin/Tazobactam 3.375 GM in Sodium Chloride 0.9% 100 ML IVPB SCH ×4 (03:54→20:50)
[2018-03-28] MEDS: HumaLOG 300 UNITS/3 ML VIAL SC PRN ×2 (06:41→17:11)
[2018-03-28] MEDS: Lisinopril 5 MG TAB PO SCH (09:31)
[2018-03-28] MEDS: Citalopram 10 MG TAB PO SCH (09:31)
--- NOTE | 2018-03-28 13:39 | PDOC.PN ---
- Subjective Encounter Start Date: 03/28/18 Encounter Start Time: 12:00 Subjective: is amb in room and hallway -: no pain in his foot today - Objective Resuscitation Status: Resuscitation Status FULL:Full Resuscitation MAR Reviewed: Yes Vital Signs & Weight: Vital Signs (12 hours) Temp Pulse Resp BP BP Pulse Ox 03/28/18 09:31 87 150/103 H 03/28/18 08:00 98.2 F 87 16 150/103 H 97 Weight Weight 240 lb 3 oz I&O: 03/27/18 03/28/18 03/29/18 06:59 06:59 06:59 Intake Total 800 Balance 800 Result Diagrams: 03/26/18 14:08 03/26/18 14:08 Additional Labs: Accuchecks 03/28/18 03/28/18 03/27/18 12:09 06:07 20:17 POC Glucose 155 H 203 H 160 H 03/27/18 17:08 POC Glucose 163 H Phys Exam - Physical Examination HEENT: PERRLA, moist MMs Neck: no JVD, supple Respiratory: no wheezing, no rales Cardiovascular: RRR, no significant murmur Gastrointestinal: soft, non-tender, positive bowel sounds Musculoskeletal: no edema, pulses present Neurological: non-focal, moves all 4 limbs Psychiatric: normal affect, A&O x 3 Dx/Plan (1) left great toe infection Status: Suspected (2) DM type 2 (diabetes mellitus, type 2) Status: Chronic Qualifiers: Diabetes mellitus intermediate card tender insulin use: with intermediate card tender use Diabetes mellitus complication status: with unspecified complications Qualified Code(s) : E11.8 - Type 2 diabetes mellitus with unspecified complications; Z79.4 - intermediate card tender (current) use of insulin (3) Chronic hepatitis C with cirrhosis Code(s): B18.2 - CHRONIC VIRAL HEPATITIS C; K74.60 - UNSPECIFIED CIRRHOSIS OF LIVER Status: Chronic (4) GERD (gastroesophageal reflux disease) Code(s): K21.9 - GASTRO-ESOPHAGEAL REFLUX DISEASE WITHOUT ESOPHAGITIS Status: Chronic Qualifiers: Esophagitis presence: esophagitis presence not specified Qualified Code(s) : K21.9 - Gastro-esophageal reflux disease without esophagitis (5) HTN (hypertension) Code(s): I10 - ESSENTIAL (PRIMARY) HYPERTENSION Status: Chronic Qualifiers: Hypertension type: essential hypertension Qualified Code(s): I10 - Essential (primary) hypertension (6) Schizoaffective disorder Code(s): F25.9 - SCHIZOAFFECTIVE DISORDER, UNSPECIFIED Status: Chronic - Plan is on zosyn, may dc if ok with orthopedic surgery -: dc plan in am -: continue elavil, celexa and zyprexa -: on lantus 10u qhs along with lisinopril -: ambulate as tolerated * . Review of Systems - Medications/Allergies Allergies/Adverse Reactions: Allergies Allergy/AdvReac Type Severity Reaction Status Date / Time No Known Drug Allergies Allergy Verified 03/27/18 04:43 Medications: Current Medications Hydrocodone Bitart/Acetaminophen ([place] 7.5/325) 1 tab PO Q4H PRN PRN Reason: Moderate Pain (4-6) Amitriptyline HCl (Elavil) 150 mg PO [facility] Last Admin: 03/27/18 20:47 Dose: 150 mg Citalopram Hydrobromide (Celexa) 10 mg PO DAILY [facility] Last Admin: 03/28/18 09:31 Dose: 10 mg Dextrose/Water (Dextrose 50%) 25 gm SLOW IVP PRN PRN PRN Reason: Hypoglycemia Glucagon (Glucagon) 1 mg IM PRN PRN PRN Reason: Hypoglycemia Piperacillin Sod/Tazobactam (Sod 3.375 gm/ Sodium Chloride) 100 mls @ 200 mls/ hr IVPB 0300,0900,1500,2100 [facility] Last Admin: 03/28/18 09:30 Dose: 100 mls Dextrose/Water (D5w) 1,000 mls @ 0 mls/hr IV .Q0M PRN PRN Reason: Hypoglycemia Insulin Glargine 10 units/ (Miscellaneous Medication) 0.1 mls @ 0 mls/hr SC [facility] Last Admin: 03/27/18 20:48 Dose: 0.1 mls Insulin Human Lispro (Humalog) 0 units SC .MODERATE SLIDING SC PRN PRN Reason: Moderate Correctional Scale Last Admin: 03/28/18 06:41 Dose: 4 unit Lisinopril (Zestril) 5 mg PO DAILY [facility] Last Admin: 03/28/18 09:31 Dose: 5 mg Olanzapine (Zyprexa) 15 mg PO 1999 [facility] Last Admin: 03/27/18 20:48 Dose: 15 mg
[2018-03-28] MEDS: OLANZapine 5 MG TAB PO SCH (20:49)
[2018-03-28] MEDS: Insulin Glargine 10 UNITS in Pre-Filled Syringe 1 EACH SC SCH (20:53)
[2018-03-28] MEDS: Famotidine 20 MG TAB PO SCH (21:44)
[2018-03-29] MEDS: Piperacillin/Tazobactam 3.375 GM in Sodium Chloride 0.9% 100 ML IVPB SCH ×4 (04:05→21:31)
[2018-03-29] MEDS: HumaLOG 300 UNITS/3 ML VIAL SC PRN (05:25)
[2018-03-29] MEDS: Lisinopril 5 MG TAB PO SCH (07:56)
[2018-03-29] MEDS: Famotidine 20 MG TAB PO SCH ×2 (07:56→21:29)
[2018-03-29] MEDS: Citalopram 10 MG TAB PO SCH (07:56)
--- NOTE | 2018-03-29 12:16 | PDOC.PN ---
- Subjective Encounter Start Date: 03/29/18 Encounter Start Time: 11:40 Subjective: is amb and feels good -: wants to go home - Objective Resuscitation Status: Resuscitation Status FULL:Full Resuscitation MAR Reviewed: Yes Vital Signs & Weight: Vital Signs (12 hours) Temp Pulse Resp BP BP Pulse Ox 03/29/18 08:00 97 03/29/18 07:56 79 157/104 H 03/29/18 07:40 97.8 F 79 16 157/104 H 97 Weight Weight 240 lb 3 oz I&O: 03/28/18 03/29/18 03/30/18 06:59 06:59 06:59 Intake Total 800 2560 Balance 800 2560 Result Diagrams: 03/26/18 14:08 03/26/18 14:08 Additional Labs: Accuchecks 03/29/18 03/28/18 03/28/18 05:14 20:53 16:37 POC Glucose 219 H 191 H 248 H 03/28/18 12:09 POC Glucose 155 H Phys Exam - Physical Examination HEENT: PERRLA, moist MMs Neck: no JVD, supple Respiratory: no wheezing, no rales Cardiovascular: RRR, no significant murmur Gastrointestinal: soft, non-tender, positive bowel sounds Musculoskeletal: no edema, pulses present Neurological: non-focal, moves all 4 limbs Psychiatric: normal affect, A&O x 3 Dx/Plan (1) left great toe infection Status: Suspected (2) DM type 2 (diabetes mellitus, type 2) Status: Chronic Qualifiers: Diabetes mellitus usp insulin use: with usp use Diabetes mellitus complication status: with unspecified complications Qualified Code(s) : E11.8 - Type 2 diabetes mellitus with unspecified complications; Z79.4 - manager embalmer funeral director (current) use of insulin (3) Chronic hepatitis C with cirrhosis Code(s): B18.2 - CHRONIC VIRAL HEPATITIS C; K74.60 - UNSPECIFIED CIRRHOSIS OF LIVER Status: Chronic (4) GERD (gastroesophageal reflux disease) Code(s): K21.9 - GASTRO-ESOPHAGEAL REFLUX DISEASE WITHOUT ESOPHAGITIS Status: Chronic Qualifiers: Esophagitis presence: esophagitis presence not specified Qualified Code(s) : K21.9 - Gastro-esophageal reflux disease without esophagitis (5) HTN (hypertension) Code(s): I10 - ESSENTIAL (PRIMARY) HYPERTENSION Status: Chronic Qualifiers: Hypertension type: essential hypertension Qualified Code(s): I10 - Essential (primary) hypertension (6) Schizoaffective disorder Code(s): F25.9 - SCHIZOAFFECTIVE DISORDER, UNSPECIFIED Status: Chronic - Plan hemostable -: is on zosyn -: bone scan in am -: dc plan in am if ok with -: continue celexa, zyprexa, elavil, lantus and lisinopril * . Review of Systems - Medications/Allergies Allergies/Adverse Reactions: Allergies Allergy/AdvReac Type Severity Reaction Status Date / Time No Known Drug Allergies Allergy Verified 03/27/18 04:43 Medications: Current Medications Hydrocodone Bitart/Acetaminophen ([place] 7.5/325) 1 tab PO Q4H PRN PRN Reason: Moderate Pain (4-6) Amitriptyline HCl (Elavil) 150 mg PO [facility] Last Admin: 03/28/18 20:50 Dose: 150 mg Citalopram Hydrobromide (Celexa) 10 mg PO DAILY [facility] Last Admin: 03/29/18 07:56 Dose: 10 mg Dextrose/Water (Dextrose 50%) 25 gm SLOW IVP PRN PRN PRN Reason: Hypoglycemia Famotidine (Pepcid) 20 mg PO BID [facility] Last Admin: 03/29/18 07:56 Dose: 20 mg Glucagon (Glucagon) 1 mg IM PRN PRN PRN Reason: Hypoglycemia Piperacillin Sod/Tazobactam (Sod 3.375 gm/ Sodium Chloride) 100 mls @ 200 mls/ hr IVPB 0300,0900,1500,2100 [facility] Last Admin: 03/29/18 07:56 Dose: 100 mls Dextrose/Water (D5w) 1,000 mls @ 0 mls/hr IV .Q0M PRN PRN Reason: Hypoglycemia Insulin Glargine 10 units/ (Miscellaneous Medication) 0.1 mls @ 0 mls/hr SC [facility] Last Admin: 03/28/18 20:53 Dose: 0.1 mls Insulin Human Lispro (Humalog) 0 units SC .MODERATE SLIDING SC PRN PRN Reason: Moderate Correctional Scale Last Admin: 03/29/18 05:25 Dose: 4 unit Lisinopril (Zestril) 5 mg PO DAILY [facility] Last Admin: 03/29/18 07:56 Dose: 5 mg Olanzapine (Zyprexa) 15 mg PO 1999 [facility] Last Admin: 03/28/18 20:49 Dose: 15 mg
[2018-03-29] MEDS ORDERED: Docusate 100 MG CAP PO PRN (13:04)
[2018-03-29] MEDS: OLANZapine 5 MG TAB PO SCH (21:29)
[2018-03-29] MEDS: Insulin Glargine 10 UNITS in Pre-Filled Syringe 1 EACH SC SCH (21:30)
[2018-03-30] MEDS: Piperacillin/Tazobactam 3.375 GM in Sodium Chloride 0.9% 100 ML IVPB SCH ×4 (02:05→21:29)
[2018-03-30] MEDS: HumaLOG 300 UNITS/3 ML VIAL SC PRN ×2 (05:18→15:55)
--- NOTE | 2018-03-30 08:54 | CON ---
DATE OF CONSULTATION: 03/28/2018 REASON FOR CONSULTATION: Foot inflammatory process. HISTORY OF PRESENT ILLNESS: A 52-year-old patient who has a history of schizoaffective disorder, chronic hepatitis C which has not been treated, hypertension, type 2 diabetes. Patient had been recently admitted and then left the hospital against medical advice and then readmitted because of worsening pain in the left foot. X-ray findings this time showed areas of bone destruction. He was admitted with concern for osteomyelitis. Dr. Escalante has attempted a needle aspirate which was dry. Currently, Mr. Delarosa is awake. He is not very responsive, he stares at the room and does not reply any questions. He will make some signs with his hands sometimes. According to the nurse, he has not had any respiratory symptoms. There is no diarrhea, no genitourinary symptoms. PAST MEDICAL HISTORY: Chronic hepatitis C, untreated, type 2 diabetes, has had previous operations in the left foot, probably bunionectomy. He also has had a tonsillectomy and adenoidectomy. PSYCHIATRIC HISTORY: Schizoaffective disorder, depression. SOCIAL HISTORY: Current smoker. Homeless. FAMILY HISTORY: Noncontributory. ALLERGIES: None. CURRENT MEDICATIONS: [place], Elavil, Celexa, dextrose, glucagon, insulin, lisinopril, olanzapine, Zosyn. PHYSICAL EXAMINATION: VITAL SIGNS: Temperature normal. Blood pressure 150/103, pulse 87, respirations 16, O2 sat 97%. SKIN: Area of bruising in the thigh and in the knee. His left foot has a healed incision from a prior surgery in the left first MPJ area, but no erythema , no ulcers, no drainage. LYMPHATIC: Patient has no lymphadenopathy. HEENT: Noncontributory. NECK: Supple. LUNGS: With symmetric clear breath sounds. ABD: soft, not distended, not tender, no bladder distension or organomegaly Genital area wnl Pulses 1+ DP/PT. No edema. Neuro: non focal. Awake, alert. Oriented. Some delusional thought process noted , perseverance, obsessive ideas. Assessmt: Psychoaffective disorder with prior surgical intervention elsewhere to L foot first MTP area now with worsening pain and areas of osteolysis identified in plain film. Aspirate by dr. Escalante was dry. Discussion: Diff diagn includes osteomyelitis, septic arthritis, crystal induced arthritis. Will order triple phase scan and decide on treatment plan. Last uric acid a few years ago was low. Infectious complications are higher in the list of possilibilities. If + bone scan will need to treat empirically, possibly with oral regimen in view of his psychosocial problems. MTDD
[2018-03-30] MEDS: Citalopram 10 MG TAB PO SCH (09:33)
[2018-03-30] MEDS: Famotidine 20 MG TAB PO SCH ×2 (09:33→21:29)
[2018-03-30] MEDS: Lisinopril 5 MG TAB PO SCH (09:35)
--- NOTE | 2018-03-30 11:13 | PDOC.PN ---
- Subjective Encounter Start Date: 03/30/18 Encounter Start Time: 07:45 Subjective: no leg/foot pain, is amb well - Objective Resuscitation Status: Resuscitation Status FULL:Full Resuscitation MAR Reviewed: Yes Vital Signs & Weight: Vital Signs (12 hours) Temp Pulse Resp BP BP Pulse Ox 03/30/18 09:35 79 128/78 03/30/18 08:00 97.6 F 79 18 119/71 95 Weight Weight 240 lb 3 oz I&O: 03/29/18 03/30/18 03/31/18 06:59 06:59 06:59 Intake Total 2560 940 Balance 2560 940 Result Diagrams: 03/26/18 14:08 03/26/18 14:08 Additional Labs: Accuchecks 03/30/18 03/29/18 03/29/18 05:18 21:29 16:03 POC Glucose 177 H 225 H 197 H 03/29/18 12:11 POC Glucose 176 H Phys Exam - Physical Examination HEENT: PERRLA, moist MMs Neck: no JVD, supple Respiratory: no wheezing, no rales Cardiovascular: RRR, no significant murmur Gastrointestinal: soft, non-tender, positive bowel sounds Musculoskeletal: no edema, pulses present Neurological: non-focal, moves all 4 limbs Psychiatric: normal affect, A&O x 3 Dx/Plan (1) left great toe infection Status: Suspected (2) DM type 2 (diabetes mellitus, type 2) Status: Chronic Qualifiers: Diabetes mellitus nursing home insulin use: with technician terminal and repeater use Diabetes mellitus complication status: with unspecified complications Qualified Code(s) : E11.8 - Type 2 diabetes mellitus with unspecified complications; Z79.4 - custodial (current) use of insulin (3) Chronic hepatitis C with cirrhosis Code(s): B18.2 - CHRONIC VIRAL HEPATITIS C; K74.60 - UNSPECIFIED CIRRHOSIS OF LIVER Status: Chronic (4) GERD (gastroesophageal reflux disease) Code(s): K21.9 - GASTRO-ESOPHAGEAL REFLUX DISEASE WITHOUT ESOPHAGITIS Status: Chronic Qualifiers: Esophagitis presence: esophagitis presence not specified Qualified Code(s) : K21.9 - Gastro-esophageal reflux disease without esophagitis (5) HTN (hypertension) Code(s): I10 - ESSENTIAL (PRIMARY) HYPERTENSION Status: Chronic Qualifiers: Hypertension type: essential hypertension Qualified Code(s): I10 - Essential (primary) hypertension (6) Schizoaffective disorder Code(s): F25.9 - SCHIZOAFFECTIVE DISORDER, UNSPECIFIED Status: Chronic - Plan hemostable -: awaiting bone scan -: dc plan per adv -: is on zosyn, lantus, zyprexa, elavil, celexa * . Review of Systems - Medications/Allergies Allergies/Adverse Reactions: Allergies Allergy/AdvReac Type Severity Reaction Status Date / Time No Known Drug Allergies Allergy Verified 03/27/18 04:43 Medications: Current Medications Hydrocodone Bitart/Acetaminophen ([place] 7.5/325) 1 tab PO Q4H PRN PRN Reason: Moderate Pain (4-6) Amitriptyline HCl (Elavil) 150 mg PO [facility] Last Admin: 03/29/18 21:29 Dose: 150 mg Citalopram Hydrobromide (Celexa) 10 mg PO DAILY [facility] Last Admin: 03/30/18 09:33 Dose: 10 mg Dextrose/Water (Dextrose 50%) 25 gm SLOW IVP PRN PRN PRN Reason: Hypoglycemia Docusate Sodium (Colace) 100 mg PO BIDPRN PRN PRN Reason: CONSTIPATION Last Admin: 03/29/18 13:23 Dose: 100 mg Famotidine (Pepcid) 20 mg PO BID [facility] Last Admin: 03/30/18 09:33 Dose: 20 mg Glucagon (Glucagon) 1 mg IM PRN PRN PRN Reason: Hypoglycemia Piperacillin Sod/Tazobactam (Sod 3.375 gm/ Sodium Chloride) 100 mls @ 200 mls/ hr IVPB 0300,0900,1500,2100 [facility] Last Admin: 03/30/18 09:33 Dose: 100 mls Dextrose/Water (D5w) 1,000 mls @ 0 mls/hr IV .Q0M PRN PRN Reason: Hypoglycemia Insulin Glargine 10 units/ (Miscellaneous Medication) 0.1 mls @ 0 mls/hr SC [facility] Last Admin: 03/29/18 21:30 Dose: 0.1 mls Insulin Human Lispro (Humalog) 0 units SC .MODERATE SLIDING SC PRN PRN Reason: Moderate Correctional Scale Last Admin: 03/30/18 05:18 Dose: 2 unit Lisinopril (Zestril) 5 mg PO DAILY [facility] Last Admin: 03/30/18 09:35 Dose: 5 mg Olanzapine (Zyprexa) 15 mg PO 1999 [facility] Last Admin: 03/29/18 21:29 Dose: 15 mg
--- NOTE | 2018-03-30 16:57 | NM ---
NUCLEAR MEDICINE BONE SCAN THREE PHASE: Date: 03/30/18 HISTORY: 52-year-old male with pain and swelling at the first metatarsophalangeal joint, status post surgery 8 months ago. TECHNIQUE: IV injection of 30.6 mCi technetium-99m MDP. Dynamic flow and immediate blood pool scintigraphic images of the feet. Three hour delayed skeletal scintigraphy of the bilateral feet and whole body. FINDINGS: There is increased blood flow to the left foot. There is increased immediate blood pool activity in t he region of the first MTP. There is markedly increased focal bone uptake at the left first MTP. No suspicious lesions are visualized elsewhere in the skeleton. IMPRESSION: Evidence for septic arthritis involving the left first metatarsophalangeal joint. POS: TOMMY
[2018-03-30] MEDS: OLANZapine 5 MG TAB PO SCH (21:29)
[2018-03-30] MEDS: Insulin Glargine 10 UNITS in Pre-Filled Syringe 1 EACH SC SCH (21:32)
[2018-03-31] MEDS: Piperacillin/Tazobactam 3.375 GM in Sodium Chloride 0.9% 100 ML IVPB SCH ×4 (02:35→20:27)
[2018-03-31] MEDS: HumaLOG 300 UNITS/3 ML VIAL SC PRN ×3 (05:01→20:25)
[2018-03-31] MEDS: Lisinopril 5 MG TAB PO SCH (10:15)
[2018-03-31] MEDS: Citalopram 10 MG TAB PO SCH (10:15)
[2018-03-31] MEDS: Famotidine 20 MG TAB PO SCH ×2 (10:15→20:26)
--- NOTE | 2018-03-31 15:40 | PRG ---
DATE OF SERVICE: 03/31/2018 SUBJECTIVE: Mr. Delarosa is feeling well. He actually denies any pain in the left foot, which is hard to believe. No respiratory symptoms or abdominal pain. No diarrhea. OBJECTIVE: VITAL SIGNS: His T-max 98.5, blood pressure 140/70, pulse 80, respirations 18, O2 sat 94%. GENERAL: Awake, alert, oriented. NECK: Supple. LUNGS: Symmetric with clear breath sounds. CARDIOVASCULAR: S1, S2, regular rate. No S3 or S4. ABDOMEN: Soft and not distended. EXTREMITIES: The left first MPJ has minimal or if any inflammatory changes and is not tender to palp ation. LABORATORY DATA: White cell count 2.0, hemoglobin 12.4. Creatinine 1.14, GFR is 68. IMAGING: Bone scan nuclear medicine study showed left first MPJ inflammatory changes. ASSESSMENT AND DISCUSSION. Schizoaffective disorder with prior left foot MPJ intervention, now with areas of uptake. The aspirate was dry, but we will go ahead and treat him empirically with Cipro and rifampin for 42 days. Clinically, he does not appear to have an inflammatory process, but he did cruz ve a lot of pain earlier and the bone scan is positive and it is hard to completely rule out an infec tion there. Follow up in the clinic.
--- NOTE | 2018-03-31 17:48 | PDOC.PN ---
- Subjective Encounter Start Date: 03/31/18 Encounter Start Time: 17:47 Subjective: Patient keeps going out of the room. - Objective Resuscitation Status: Resuscitation Status FULL:Full Resuscitation MAR Reviewed: Yes Vital Signs & Weight: Vital Signs (12 hours) Pulse BP Pulse Ox 03/31/18 10:15 80 144/79 H 03/31/18 08:00 98 Weight Weight 240 lb 3 oz I&O: 03/30/18 03/31/18 04/01/18 06:59 06:59 06:59 Intake Total 940 1180 Balance 940 1180 Result Diagrams: 03/26/18 14:08 03/26/18 14:08 Additional Labs: Accuchecks 03/31/18 03/31/18 03/31/18 16:44 11:32 05:01 POC Glucose 198 H 246 H 223 H 03/30/18 21:33 POC Glucose 233 H Phys Exam - Physical Examination HEENT: PERRLA, moist MMs, sclera anicteric, TM's clear, oral pharynx no lesions , 2+ tonsils Neck: no nodes, no JVD, supple, full ROM Respiratory: no wheezing, no rales Gastrointestinal: soft, non-tender, no distention, positive bowel sounds Musculoskeletal: edema present infected toe Dx/Plan (1) left great toe infection Status: Suspected Comment: Continue IV abx, DC home with PO abx per Dr. Dorantes. Will DW for medication (2) Chronic hepatitis C with cirrhosis Code(s): B18.2 - CHRONIC VIRAL HEPATITIS C; K74.60 - UNSPECIFIED CIRRHOSIS OF LIVER Status: Chronic (3) HTN (hypertension) Code(s): I10 - ESSENTIAL (PRIMARY) HYPERTENSION Status: Chronic Qualifiers: Hypertension type: essential hypertension Qualified Code(s): I10 - Essential (primary) hypertension (4) Hyperglycemia Code(s): R73.9 - HYPERGLYCEMIA, UNSPECIFIED Status: Chronic - Plan cont current plan of care * .
[2018-03-31] MEDS: Insulin Glargine 10 UNITS in Pre-Filled Syringe 1 EACH SC SCH (20:24)
[2018-03-31] MEDS: OLANZapine 5 MG TAB PO SCH (20:26)
[2018-04-01] MEDS: Piperacillin/Tazobactam 3.375 GM in Sodium Chloride 0.9% 100 ML IVPB SCH ×3 (02:57→16:45)
[2018-04-01 07:47] VITALS: BP 140/80; TEMP 98.1
[2018-04-01] MEDS: Lisinopril 5 MG TAB PO SCH (08:42)
[2018-04-01] MEDS: Famotidine 20 MG TAB PO SCH (08:43)
[2018-04-01] MEDS: Citalopram 10 MG TAB PO SCH (08:43)
--- NOTE | 2018-04-02 02:13 | DIS ---
DATE OF ADMISSION: 03/26/2018 DATE OF DISCHARGE: 04/01/2018 HISTORY OF PRESENT ILLNESS AND HOSPITAL COURSE: Kumar Delarosa is a 52-year-old male who admitted with significant left foot pain. On further evaluation, there was a little bit of a swelling around the left ankle and the left great toe looked infected. Patient was then treated with IV antibiotics and nuclear scan was done, which had a little bit of increased uptake in the left great toe. The left an kle aspiration was tried, but it ended up being a dry tap. Patient responded well to the IV antibiot ics. He was then discharged with p.o. antibiotics, Cipro 500 mg p.o. b.i.d., rifampin 300 mg p.o. b. i.d. for 6 weeks. DISCHARGE INSTRUCTIONS: 1. Patient was instructed to take all his medications. 2. Please follow up with Dr. Ybarra. 3. Activity: As tolerated. 4. Regular diet.
--- NOTE | 2018-04-03 13:49 | PQF ---
[employer] Temporary Receptionist Crystal Reports Winform ViewerMONAE SWANSON REKHA [id number] CLINICAL DOCUMENTATION CLARIFICATION FORM: POST DISCHARGE Addendum to original discharge summary date: ____ Late entry note date: __ Please exercise your independent, professional judgment in responding to the clarification form. Clinical indicators are provided on the bottom of this form for your review Please check appropriate box(s) to clarify if the following diagnosis has been ruled in or ruled out: OSTEOMYELITIS (CDI/Coding list diagnosis here) [ ] Ruled in diagnosis [ ] Continue to treat [ ] Resolved [ ] Ruled out diagnosis [ ] Cannot rule out diagnosis [ ] Other diagnosis [ ] Unable to determine In addition, please specify: Present on Admission (POA): [ ] Yes [ ] No [ ] Unable to determine For continuity of documentation, please document condition throughout progress notes and discharge summary. Thank You. CLINICAL INDICATORS - SIGNS / SYMPTOMS / LABS LEFT GREAT TOE OSTEOMYELITIS- H&P, PN 03/27 GREAT TOE LOOKED INFECTED- D/S AREAS OF OSTEOLYSIS FOUND IN THE JOINT FILM- CONSULT 03/28 THERE DOES NOT APPEAR TO B INFECTION IN THE FIRST MTP JOINT OF THE LEFT GREAT TOE- CONSULT 03/27 LEFT GREAT TOE INFECTION- PN 03/28, 03/29, 03/30, 03/31 RISK FACTORS DIABETES TREATMENTS ATTEMPTED BIOPSY XRAY [employer] Temporary Receptionist Crystal Reports Winform ViewerANTIBIOTICS (This form is maintained as a part of the permanent medical record) 2014 [employer]. All Rights Reserved [email or web address] [phone] MTDD
== END 2018-04-01 16:32 | disposition home or self-care (01) | DRG 638 ==
LOC: ERS 12:04 → T4-B 19:35
PROVIDERS: ADMIT Internal Medicine; ATTEND Internal Medicine
PROC: 0S9N3ZZ Drainage of Left Metatarsal-Phalangeal Joint, Percutaneous Approach (ICD-10-PCS; principal; 2018-03-27)
DX: E11.69 Type 2 diabetes mellitus with other specified complication (principal); M86.8X7 Other osteomyelitis, ankle and foot; D61.818 Other pancytopenia; M00.9 Pyogenic arthritis, unspecified; I10 Essential (primary) hypertension; K21.9 Gastro-esophageal reflux disease without esophagitis; F32.9 Major depressive disorder, single episode, unspecified; F25.9 Schizoaffective disorder, unspecified; F17.210 Nicotine dependence, cigarettes, uncomplicated; Z59.0 Homelessness; B18.2 Chronic viral hepatitis C; K74.60 Unspecified cirrhosis of liver; E11.65 Type 2 diabetes mellitus with hyperglycemia; Z79.4 Long term (current) use of insulin
CPT/HCPCS: 36415; 36416; 78315; 80053; 82140; 83036; 85025; 90471; 90670; 90686; 96361; 96365; 96367; 96375; A9503; G0008; G0009; J1885; J2543; J3370; J7050

== ENCOUNTER 2018-06-23 21:20 | Observation (INO) | payer SELFPAY ==
--- NOTE | 2018-06-23 22:25 | RAD ---
PORTABLE CHEST ONE VIEW: 06/23/18 at 10:01 p.m. HISTORY: Chest pain. FINDINGS: The heart size is normal. The lungs are expanded without focal areas of consolidation, pneumothoraces or pleural effusions. IMPRESSION: No acute process. POS: NEERAJ
[2018-06-23 22:48] LABS: ALT (SGPT) 469 U/L (8-55); AST (SGOT) 664 U/L (5-34); Albumin 3.3 g/dL (3.5-5.0); Alkaline Phosphatase 121 U/L (40-150); Anion Gap 14 mmol/L (10-20); BUN (Urea Nitrogen) 20 mg/dL (8.9-20.6); Band 4 % (5-11); Bilirubin, Total 2.6 mg/dL (0.2-1.2); Calc. Creatinine Clearance 0 mL/min (70-130); Calcium 8.5 mg/dL (7.8-10.44); Carbon Dioxide 18 mmol/L (22-29); Chloride 104 mmol/L (98-107); Estimated GFR-MDRD 89; Globulin 4.6 g/dL (2.4-3.5); Glucose 169 mg/dL (70-105); Hemoglobin 14.2 g/dL (14.0-18.0); Lymphocytes 5 % (21-51); MDiff Complete? YES; Mean Corpuscular HGB CONC 33.2 g/dL (32.0-36.0); Mean Corpuscular Volume 96.2 fL (78.0-98.0); Mean Platelet Volume 7.5 fL (7.4-10.4); Monocytes 20 % (0-10); Neutrophil 70 % (42-75); Platelet Count 59 thou/uL (130-400); Platelet Morphology Comment Appears Decreased; Potassium 3.7 mmol/L (3.5-5.1); Protein, Total 7.9 g/dL (6.0-8.3); RBC Distribution Width 14.5 % (11.5-14.5); Red Blood Cell (RBC) Count 4.45 mill/uL (4.70-6.10); Sodium 132 mmol/L (136-145); White Blood Cell (WBC) Count 4.6 thou/uL (4.8-10.8)
[2018-06-23 23:02] LABS: CKMB 2.3 ng/mL (0-6.6)
[2018-06-23] MEDS ORDERED: Nitroglycerin 2% Ointment 1 INCH/1 GM Packet ONE (23:36)
[2018-06-23] MEDS ORDERED: Aspirin 325 MG TAB ONE (23:36)
[2018-06-24 01:45] LABS: Troponin I 0.046 ng/mL (< 0.028)
--- NOTE | 2018-06-24 02:32 | HP ---
REASON FOR ADMISSION: Chest pain rule out. HISTORY OF PRESENT ILLNESS AND REVIEW OF SYSTEMS: Mr. Delarosa is a 52-year-old man who presented to the ED via EMS for complaints of chest pain. Per ED notes, the patient reported taking his mother's medication. When I took report on the patient, it was said he had been experiencing chest pain and underwent laboratory studies including troponin that was raised at 0.056 with elevated liver function studies including a T bilirubin of 2.6 and chronic thrombocytopenia with a platelet count of 59 attributed to long-standing cirrhosis. Per ED note, the patient reported contacted insurance who refused to bring him to the hospital. He was given nitroglycerin and aspirin in the ED. Upon assessment, the patient able to answer some questions, but seems to be disoriented, unable to state the year or the date, though he is aware he is in a "hospital." He denies having any pain at present. He is able to answer some questions appropriately and follow commands. He denies having any trauma. Denies any alcohol or drug use. Unable to state where he came from, but does report having "cardiac problems" for the last 2 days. He does admit to taking a medication his mom gave him, but unable to state what the medication is for, the name, or the type of medication, whether tablet or liquid, etc. The patient denies having any recent fevers or chills. Denies having any nausea or vomiting. No abdominal pain or cramping. No shortness of breath. Very poor historian. Unclear if information is reliable. PAST MEDICAL HISTORY: 1. Hypertension. Per patient, he does take his medications regularly. 2. GERD. 3. Hepatitis C. 4. Type 2 diabetes, untreated. PAST SURGICAL HISTORY: 1. Tonsillectomy. 2. Groin surgery. 3. Adenoidectomy. 4. Left great toe surgery. 5. Known psychoaffective disorder. Unclear if this is his baseline. SOCIAL HISTORY: The patient drinks socially almost weekly. Previous methamphetamine user. Currently smokes one pack per day. Denies any current illicit drug use. ALLERGIES: NO KNOWN DRUG ALLERGIES. CURRENT MEDICATIONS: 1. Celexa 20 mg twice daily. 2. Elavil 75 mg 2 tablets once daily. 3. Benadryl 50 mg 2 tablets twice a day. PHYSICAL EXAMINATION: GENERAL: The patient found resting on the stretcher and in no acute distress. Patient is responsive, but not fully oriented to date. He is in no acute distress. VITAL SIGNS: Temperature 98.9, blood pressure 124/69, pulse 80, respirations 18 , O2 saturation 99% on room air. HEENT: Normocephalic and atraumatic. Pupils are equal, round, and reactive to light. Eyes with injection. No scleral icterus. NECK: Supple with full range of motion. LUNGS: Clear to auscultation bilaterally without wheezes, rales, or rhonchi. CARDIAC: Regular rate and rhythm without audible murmurs, rubs, or gallops. ABDOMEN: Soft, nontender, nondistended. Normoactive bowel sounds present. No renal angle tenderness. No rigidity. EXTREMITIES: No clubbing, cyanosis, or edema. NEUROLOGIC: Speech normal. No focal deficits. SKIN: Without rash or jaundice. INVESTIGATIONS: ECG shows premature atrial complexes with no ST changes or T- wave abnormalities. LABORATORY STUDIES: Notable for sodium of 132, stable. Renal function normal. Total bilirubin 2.6, AST 664, raise from previous level of 100. ALT 469 compared to 79 previously. Alkaline phosphatase 121. CK-MB 2.3. Troponin 1 is 0.056. Lipase 14. Chest x-ray, June 23, 2018, no acute process. IMPRESSION AND PLAN: Mr. Delarosa is a 52-year-old man admitted for chest pain rule out and will undergo management of the following. 1. Chest pain. Patient asymptomatic at present. Has been given nitroglycerin in the ED. The patient is asymptomatic at present and states he has been experiencing "cardiac problems" for the last 2 days. Serial troponins. Continue to monitor. 2. Confusion. The patient is somewhat confused during assessment, not oriented to the year or date. Unclear if this is his baseline. He does have injections in both eyes. He denies any recent drug use, but does have a history of drug abuse, including methamphetamines. We have requested a urine drug screen and serum alcohol level as well as an ammonia level. 3. Cirrhosis. LFTs significantly raised compared to previous. Awaiting ammonia. Continue to follow. There is a potential he could be experiencing hepatic encephalopathy. 4. Hypertension. Monitor blood pressure. 5. Gastrointestinal prophylaxis. 6. Venous thromboembolism prophylaxis. The patient's case was discussed with Dr. Altamirano who agrees with plan of care as described above. Job ID: [id number] Case discussed with PA, management planned as above. JASEN
[2018-06-24 04:38] LABS: Troponin I 0.051 ng/mL (< 0.028)
[2018-06-24] MEDS ORDERED: Ondansetron PF 4 MG/2 ML Vial IVP PRN (06:12)
[2018-06-24] MEDS ORDERED: Ondansetron ODT 4 MG TAB PO PRN (06:13)
[2018-06-24] MEDS ORDERED: Acetaminophen 325 MG TAB PO PRN (06:13)
[2018-06-24 09:22] LABS: #Basophils 0.1 thou/uL (0.0-0.2); #Eosinphils 0.1 thou/uL (0.0-0.7); #Lymphocytes 1.2 thou/uL (1.20-3.40); #Monocytes 0.5 thou/uL (0.11-0.59); #Neutrophils 2.5 thou/uL (1.40-6.50); %Basophils 1.2 % (0.0-1.0); %Lymphocytes 26.6 % (21.0-51.0); %Monocytes 11.7 % (0.0-10.0); %Neutrophils 58.5 % (42.0-75.0); Hemoglobin 14.3 g/dL (14.0-18.0); Mean Corpuscular HGB CONC 34.4 g/dL (32.0-36.0); Mean Corpuscular Hemoglobin 33.2 pg (27.0-31.0); Mean Corpuscular Volume 96.5 fL (78.0-98.0); Mean Platelet Volume 7.2 fL (7.4-10.4); Platelet Count 81 thou/uL (130-400); RBC Distribution Width 14.3 % (11.5-14.5); Red Blood Cell (RBC) Count 4.32 mill/uL (4.70-6.10); White Blood Cell (WBC) Count 4.4 thou/uL (4.8-10.8)
[2018-06-24 09:39] LABS: ALT (SGPT) 437 U/L (8-55); AST (SGOT) 546 U/L (5-34); Albumin 3.2 g/dL (3.5-5.0); Alkaline Phosphatase 123 U/L (40-150); Anion Gap 14 mmol/L (10-20); BUN (Urea Nitrogen) 15 mg/dL (8.9-20.6); Bilirubin, Total 2.3 mg/dL (0.2-1.2); Calc. Creatinine Clearance 0 mL/min (70-130); Calcium 8.3 mg/dL (7.8-10.44); Carbon Dioxide 19 mmol/L (22-29); Chloride 106 mmol/L (98-107); Estimated GFR-MDRD Greater than 90; Globulin 4.6 g/dL (2.4-3.5); Glucose 202 mg/dL (70-105); Potassium 3.6 mmol/L (3.5-5.1); Protein, Total 7.8 g/dL (6.0-8.3); Sodium 135 mmol/L (136-145)
[2018-06-24] MEDS ORDERED: Acetaminophen 325 MG TAB ONE (13:35)
[2018-06-24 14:45] LABS: Medtox Reader # READER 1
[2018-06-24 14:46] LABS: Amphetamine Detected (NotDetected); Benzodiazepine Screen Not Detected (NotDetected); Cocaine Metabolite Screen Not Detected (NotDetected); Methamphetamine Detected (NotDetected); Opiate Screen Not Detected (NotDetected); Phencyclidine (PCP) Not Detected (NotDetected); THC/Cannabinoid Screen Not Detected (NotDetected)
[2018-06-24 14:47] LABS: Barbiturates Screen Not Detected (NotDetected); Medtox Control Line Valid? VALID (VALID); Methadone Not Detected (NotDetected); Oxycodone Screen Not Detected (NotDetected); Tricyclic Screen Detected (NotDetected)
--- NOTE | 2018-06-24 15:32 | PDOC.EVN ---
Event Note - Event Note Event Note: Pt interviewed, chart reviewed, discussed with Marilee NOONAN. agree with management, discharge
--- NOTE | 2018-06-25 10:04 | DIS ---
DATE OF ADMISSION: 06/23/2018 DATE OF DISCHARGE: 06/24/2018 DISCHARGE DIAGNOSES: 1. Chest pain, resolved. 2. Methamphetamine abuse. 3. Hypertension, stable. 4. Schizoaffective disorder, stable. 5. Bipolar disorder, stable. 6. History of hepatitis C, stable. 7. Diabetes mellitus type 2, stable. 8. Gastroesophageal reflux disease, stable. CONSULTATIONS: None. PROCEDURES: None. LABORATORY DATA: WBC 4.4, RBC 4.32, hemoglobin 14.3, platelet 81. Sodium 135, potassium 3.6, carbon dioxide 19, anion gap 14, BUN 15, creatinine 0.86, estimated GFR greater than 90, glucose 202, AST 664, trended down to 546, ALT 469, trended down to 437. Ammonia 39. Troponin 0.056, trended down to 0.051. Lipase 14. Toxicology screen detected methamphetamines and tricyclics. DIAGNOSTIC IMAGING: Chest x-ray showed no acute process. HOSPITAL COURSE: Mr. Delarosa is a pleasant 52-year-old male who had presented to [facility] with diffuse chest pain, he was also noted to have a slight altered mental status with slight confusion and not oriented to date and time. He was admitted overnight for further observation and workup of his symptoms, drug screen returned positive for methamphetamines. Therefore, stress test was not recommended to rule out cardiac etiology, serial troponins were trended and found to be stable, they went from 0.056 down to 0.051. In the emergency department, he was given Tylenol 650 mg oral for his chest pain along with topical nitroglycerin and a dose of aspirin 325 mg. Chest x-ray showed no acute findings. Liver enzymes were found to be elevated. However, the patient did report a history of hepatitis C, his liver enzymes were closely monitored throughout the hospital course and found to be trending down. His initial EKG was found to be in sinus rhythm with premature atrial complex. However, he had continued in normal sinus rhythm throughout hospital course. Blood pressure and other vital signs remained stable with blood pressure 133/70, pulse 88, respirations 18, temperature of 98.7 degrees Fahrenheit, O2 saturations were 97% on room air. He was able to ambulate around the room without any acute complications. He was also found wandering in the halls throughout the ER. He was seen and examined prior to discharge. He had no further complaints of chest pain, shortness of breath, or abdominal pain. No headache, dizziness, or blurred vision. No numbness or tingling. He was instructed to continue his home medications and follow up with PCP, he had stated that he does not have any PCP in the area, however, he is willing to follow up with an out of town PCP. Upon discharge, he was provided with several resources for further PCPs in the area. He had verbalized his understanding for this discharge plan and was deemed medically stable for discharge on 06/24/2018. The cause of his chest pain was likely secondary to methamphetamines. He was strongly encouraged to practice further cessation from his illicit drugs, he also verbalized his understanding for these recommendations. HOME MEDICATIONS: 1. Amitriptyline 150 mg oral at bedtime. 2. Citalopram 10 mg oral twice daily. 3. Lisinopril 5 mg oral daily. 4. Zantac 150 mg oral twice daily. 5. Olanzapine 15 mg oral twice daily. 6. Colace 100 mg oral daily. 7. Diphenhydramine 50 mg oral twice daily. 8. Acetaminophen one tablet oral twice daily. 9. Metformin 500 mg oral twice daily. FOLLOWUP: The patient was instructed to follow up with PCP in 1 to 2 weeks along with following his lab work which included liver enzymes. CONDITION ON DISCHARGE: Stable. ACTIVITY: As tolerated. DIET: Heart healthy. CODE STATUS: Full code. DISPOSITION: Home on 06/24/2018. Job ID: [id number]
--- NOTE | 2018-06-27 19:51 | EKG ---
Test Reason : Blood Pressure : / mmHG Vent. Rate : 086 BPM Atrial Rate : 086 BPM P-R Int : 128 ms QRS Dur : 088 ms QT Int : 388 ms P-R-T Axes : -20 001 031 degrees QTc Int : 464 ms Sinus rhythm with Premature atrial complexes Cannot rule out Anterior infarct , age undetermined Abnormal ECG Confirmed by MEAGAN VACA DO ([id number]), editorial clerk DEVIN MENDOZA ([id number]) on 06/27/2018 7:50:57 PM Referred By: Confirmed By:MEAGAN VACA DO
== END 2018-06-24 15:33 | disposition home or self-care (01) ==
LOC: ERS 21:20 → ERHOLD 23:14
PROVIDERS: ADMIT Hospitalist; ATTEND Hospitalist
DX: R07.9 Chest pain, unspecified (principal); F15.10 Other stimulant abuse, uncomplicated; I10 Essential (primary) hypertension; F31.9 Bipolar disorder, unspecified; E11.9 Type 2 diabetes mellitus without complications; K21.9 Gastro-esophageal reflux disease without esophagitis; F25.9 Schizoaffective disorder, unspecified; B19.20 Unspecified viral hepatitis C without hepatic coma; F17.210 Nicotine dependence, cigarettes, uncomplicated; K74.60 Unspecified cirrhosis of liver; Z79.899 Other long term (current) drug therapy
CPT/HCPCS: 36415; 36416; 71045; 80053; 80306; 80307; 82140; 82553; 83690; 84484; 85025; 93005; G0378

== ENCOUNTER 2019-01-21 19:01 | Emergency (ER) | payer MEDICAID, OTHER ==
[2019-01-21] MEDS ORDERED: Ketorolac Tromethamine 30 MG/ML VIAL ONE (20:01)
[2019-01-21 20:09] LABS: Bilirubin Negative (Negative); Blood, Urine Negative (Negative); Clarity Clear (Clear); Glucose, Urine (Dipstick) Greater than 1000 mg/dL (Negative); Leukocyte Negative Leu/uL (Negative); Nitrite Negative (Negative); Protein, Urine (Dipstick) Negative (Neg-Trace); Urobilinogen Normal mg/dL (Less than 2)
[2019-01-21 20:24] LABS: Amphetamine Not Detected (NotDetected); Barbiturates Screen Not Detected (NotDetected); Benzodiazepine Screen Not Detected (NotDetected); Cocaine Metabolite Screen Not Detected (NotDetected); Medtox Control Line Valid? VALID (VALID); Medtox Reader # READER 4; Methadone Not Detected (NotDetected); Methamphetamine Detected (NotDetected); Opiate Screen Not Detected (NotDetected); Oxycodone Screen Not Detected (NotDetected); Phencyclidine (PCP) Not Detected (NotDetected); THC/Cannabinoid Screen Not Detected (NotDetected); Tricyclic Screen Not Detected (NotDetected)
== END 2019-01-21 21:20 | disposition home or self-care (01) ==
LOC: EEVIPCON 19:01 → ERS 19:01
DX: G89.29 Other chronic pain (principal); M54.9 Dorsalgia, unspecified; M54.2 Cervicalgia; F15.10 Other stimulant abuse, uncomplicated; Z76.5 Malingerer [conscious simulation]; I10 Essential (primary) hypertension; K21.9 Gastro-esophageal reflux disease without esophagitis; E11.9 Type 2 diabetes mellitus without complications; Z86.19 Personal history of other infectious and parasitic diseases; F31.9 Bipolar disorder, unspecified; F25.9 Schizoaffective disorder, unspecified; F17.210 Nicotine dependence, cigarettes, uncomplicated; Z79.84 Long term (current) use of oral hypoglycemic drugs; Z79.899 Other long term (current) drug therapy
CPT/HCPCS: 80306; 81003; 96374; J1885